=== PATIENT | male | born 1950 | race Caucasian/White ===

== ENCOUNTER 2016-06-09 15:52 | Emergency (ER) | payer MEDICARE ==
--- NOTE | 2016-06-09 15:58 | NUR ---
PT PLACED IN ROOM 4
--- NOTE | 2016-06-09 16:04 | NUR ---
DR HADLEY IN ROOM FOR EXAM
--- NOTE | 2016-06-09 16:07 | NUR ---
Pt BIBA from [place], fell while using walker. (-)KO. r wrist pain, rib pain, and hip pain. No obvious deformity noted. Pt pale in color, states normal for him. warm to touch. Resp even and unlabored, on RA@99%.
[2016-06-09 16:36] LABS: CALCIUM 8.8 mg/dL (8.4-11.0); CHLORIDE 106 mmol/L (98-107); CREATININE 1.02 mg/dL (0.55-1.30); GLUCOSE 98 mg/dL (70-99); POTASSIUM 3.9 mmol/L (3.5-5.1); SODIUM SERUM 140 mmol/L (136-145); UREA NITROGEN, BLOOD 27 mg/dL (8-21)
--- NOTE | 2016-06-09 16:37 | NUR ---
Pt reports pain, Dr Childs informed, awaiitng orders.
[2016-06-09 16:39] LABS: ANION GAP < 3 (5-15); GFR AFRICAN AMERICAN 95 mL/min (>90)
[2016-06-09 16:40] LABS: PROTHROMBIN TIME 10.7 SECS (9.5-12.5)
[2016-06-09 16:51] LABS: BASOPHILS # (AUTO) 0.1 K/uL (0.0-0.2); BASOPHILS % (AUTO) 0.8 % (0.0-2.0); EOSINOPHILS # (AUTO) 0.1 K/uL (0.0-0.4); EOSINOPHILS % (AUTO) 1.5 % (0.0-4.0); HEMATOCRIT 32.6 % (36-54); HEMOGLOBIN 11.1 g/dL (14.0-18.0); LYMPHOCYTES # (AUTO) 1.3 K/uL (1.0-5.5); LYMPHOCYTES % (AUTO) 19.4 % (20.5-51.5); MEAN CORPUSCULAR HEMOGLOBIN 31 pg (27-31); MEAN CORPUSCULAR HGB CONC 34 % (32-36); MEAN CORPUSCULAR VOLUME 91 fL (79.0-98.0); MONOCYTES # (AUTO) 0.5 K/uL (0.0-1.0); MONOCYTES % (AUTO) 8.5 % (1.7-9.3); NEUTROPHILS # (AUTO) 4.4 K/uL (1.8-7.7); NEUTROPHILS % (AUTO) 69.8 % (40.0-70.0); PLATELET COUNT (AUTO) 228 K/uL (130-430); RED BLOOD CELL COUNT(AUTO) 3.59 MIL/uL (4.2-6.2); RED CELL DISTRIBUTION WIDTH 13.2 % (9.0-15.0); WHITE BLOOD COUNT (AUTO) 6.4 K/uL (4.8-10.8)
--- NOTE | 2016-06-09 16:51 | NUR ---
Medicated as ordered, Xray called to case picker pt. VSS.
[2016-06-09 16:52] LABS: ALANINE AMINOTRANSFERASE 25 U/L (12-78); ALBUMIN 3.4 g/dL (3.4-4.8); ASPARTATE AMINOTRANSFERASE 16 U/L (10-37); TOTAL BILIRUBIN 0.4 mg/dL (0.0-1.0); TOTAL PROTEIN, SERUM 6.5 g/dL (6.4-8.3)
[2016-06-09] MEDS ORDERED: MORPHINE 2 MG/ML INJ. SYRINGE IVP ONE (17:00)
[2016-06-09] MEDS ORDERED: ONDANSETRON HCL 4 MG/2 ML VIAL IVP ONE (17:00)
--- NOTE | 2016-06-09 17:29 | NUR ---
Urinal provided, able to move around in bed-slowly. Able to verbalize needs
--- NOTE | 2016-06-09 19:30 | NUR ---
Pt in bed, appeared sleepy, VSS, unable to perform road test
[2016-06-09] MEDS ORDERED: IBUPROFEN 800 MG TABLET PO ONE (20:15)
--- NOTE | 2016-06-09 21:10 | NUR ---
Patient to be transferred to [facility]. Is being transferred due to higher level of care. Receiving facility has accepting physician and available space. ER physician has signed transfer form. Patient or responsible alliance party has agreed to transfer and signed form. Patient belongings inventoried and will be sent with patient. Copy of nursing notes, lab reports, EKG, Physicians Orders and X-rays to be sent with patient. Report called to Cabrera VELAZQUEZ at receiving facility. Receiving physician is . ambulance service has been called for transfer. ETA is [id number]
--- NOTE | 2016-06-09 21:40 | NUR ---
[place] transport team arrived at [facility], report given. Pt in stable condition, VSS
[2016-06-09 21:41] LABS: BILIRUBIN,URINE NEGATIVE (NEGATIVE); BLOOD, URINE NEGATIVE (NEGATIVE); CLARITY/URINE CLEAR (CLEAR); COLOR,URINE YELLOW (YELLOW); GLUCOSE,URINE NEGATIVE (NEGATIVE); KETONES,URINE NEGATIVE (NEGATIVE); LEUKOCYTE ESTERASE ,URINE NEGATIVE (NEGATIVE); NITRITE, URINE NEGATIVE (NEGATIVE); PROTEIN URINE NEGATIVE (NEGATIVE); UROBILINOGEN,URINE 0.2 (0.2-1.0)
[2016-06-09 23:40] VITALS: BP 128/74; PULSE 80; RESP 16; TEMP 97.7; O2SAT 96
== END 2016-06-09 23:40 | disposition home or self-care (01) ==
LOC: SED 15:52
DX: Z74.2 Need for assistance at home and no other household member able to render care (principal); R10.811 Right upper quadrant abdominal tenderness; M25.551 Pain in right hip; M25.531 Pain in right wrist; F03.90 Unspecified dementia, unspecified severity, without behavioral disturbance, psychotic disturbance, mood disturbance, and anxiety; K21.9 Gastro-esophageal reflux disease without esophagitis; I10 Essential (primary) hypertension; Z88.6 Allergy status to analgesic agent; Z88.8 Allergy status to other drugs, medicaments and biological substances; W18.30XA Fall on same level, unspecified, initial encounter; Y93.01 Activity, walking, marching and hiking; Y99.8 Other external cause status; Y92.89 Other specified places as the place of occurrence of the external cause
CPT/HCPCS: 36415; 71250; 74176; 80053; 81003; 83605; 84484; 85025; 85610; 85730; 87040; 96374; 96375; 99285; J2270; J2405; 93005

== ENCOUNTER 2016-11-15 11:46 | Emergency (ER) | payer MEDICARE ==
[~2016-11-15] VITALS: Ht 165.1 cm; Wt 54.4 kg
[2016-11-15 11:53] VITALS: BP_SYST 145
[2016-11-15 12:39] LABS: BASOPHILS % (AUTO) 0.3 % (0.0-2.0); EOSINOPHILS % (AUTO) 0.3 % (0.0-4.0); HEMATOCRIT 35.7 % (36-54); HEMOGLOBIN 11.4 g/dL (14.0-18.0); LYMPHOCYTES # (AUTO) 0.8 K/uL (1.0-5.5); LYMPHOCYTES % (AUTO) 14.7 % (20.5-51.5); MEAN CORPUSCULAR HEMOGLOBIN 29 pg (27-31); MEAN CORPUSCULAR HGB CONC 32 % (32-36); MEAN CORPUSCULAR VOLUME 91 fL (79.0-98.0); MONOCYTES # (AUTO) 0.5 K/uL (0.0-1.0); NEUTROPHILS # (AUTO) 4.1 K/uL (1.8-7.7); NEUTROPHILS % (AUTO) 75.7 % (40.0-70.0); PLATELET COUNT (AUTO) 230 K/uL (130-430); RED BLOOD CELL COUNT(AUTO) 3.94 MIL/uL (4.2-6.2); RED CELL DISTRIBUTION WIDTH 13.9 % (9.0-15.0); WHITE BLOOD COUNT (AUTO) 5.4 K/uL (4.8-10.8)
[2016-11-15 12:52] LABS: CALCIUM 9.5 mg/dL (8.4-11.0); CREATININE 0.94 mg/dL (0.55-1.30); POTASSIUM 3.9 mmol/L (3.5-5.1)
[2016-11-15 12:57] LABS: ALBUMIN 3.8 g/dL (3.4-4.8); TOTAL BILIRUBIN 0.7 mg/dL (0.0-1.0)
[2016-11-15 13:31] LABS: BILIRUBIN,URINE NEGATIVE (NEGATIVE); BLOOD, URINE NEGATIVE (NEGATIVE); CLARITY/URINE CLEAR (CLEAR); COLOR,URINE YELLOW (YELLOW); GLUCOSE,URINE NEGATIVE (NEGATIVE); KETONES,URINE NEGATIVE (NEGATIVE); LEUKOCYTE ESTERASE ,URINE TRACE (NEGATIVE); NITRITE, URINE NEGATIVE (NEGATIVE); PH,URINE 6.5 (5.0-8.0); PROTEIN URINE NEGATIVE (NEGATIVE)
[2016-11-15 13:41] LABS: BACTERIA,URINE FEW /HPF (None Seen); RBC,URINE 0-3 /HPF (0-3); WBC,URINE 0-3 /HPF (0-3)
[2016-11-15 13:42] LABS: BARBITURATE, URINE NEGATIVE (NEG <=200); BENZODIAZEPINE, URINE NEGATIVE (NEG <=150); CANNABINOID, URINE NEGATIVE (NEG <=50); COCAINE, URINE NEGATIVE (NEG <=150); METHAMPHETAMINES SCREEN,URINE NEGATIVE (NEG <=500); OPIATE, URINE POSITIVE (NEG <=100); PHENCYCLIDINE SCREEN,URINE NEGATIVE (NEG <=25); UR TRICYCLIC ANTIDEPRESSANTS NEGATIVE (NEG <=300); URINE AMPHETAMINE NEGATIVE (NEG <=500); URINE METHADONE NEGATIVE (NEG <=200); URINE OXYCODONE SCREEN NEGATIVE (NEG <=100); URINE PROPOXYPHENE SCREEN NEGATIVE (NEG <=300)
[2016-11-15 15:22] VITALS: BP_SYST 119
== END 2016-11-15 13:40 | disposition short-term general hospital (02) ==
LOC: SED 11:46
DX: R41.82 Altered mental status, unspecified (principal); G35 Multiple sclerosis; G89.29 Other chronic pain; M25.561 Pain in right knee
CPT/HCPCS: 36415; 70450-TC; 80053; 80307; 81000-TC; 85025; 93005; 99285

== ENCOUNTER 2018-08-26 15:34 | Emergency (ER) | payer MEDICARE ==
[~2018-08-26] VITALS: Ht 167.6 cm; Wt 47.6 kg
[~2018-08-26 15:34] MED LIST: ALBMDI INH; ALBU8.5H8 INH; ALEN70TA3 PO; ASCO500T20 PO; ASPI-1155 PO; CALC200T47 PO; CLOP75TA2 PO; COG1 PO; CYCL-10 PO; DOCU-144 PO; DONE10TA44 PO; FLUT16SP16 NS; GABA-529 PO; GUAI5SYR4 PO; HYDR-1189 PO; IPRA0.2S6 INH; IRON1CAP17 PO; LACT10SO6 PO; LIDO700A25 TP; LIP40 PO; MELO15TA13 PO; MOME13HF INH; MONT10TA25 PO; MORP15TA60 PO; OMEG1CAP24 PO; OMEP20CA10 PO; POLY17PO4 PO; PRO20 PO; RISP1TAB27 PO; SENN-67 PO; TERA5CAP4 PO; TRIF5TAB PO; VITD2000 PO
[2018-08-26 15:36] VITALS: BP_SYST 113
--- NOTE | 2018-08-26 15:36 | NUR ---
Patient to [facility] for evaluation. Side rails up. Report given to CAROLINE Cheatham.
[2018-08-26] MEDS ORDERED: NACL 0.9% 1,000 ML IV ONE (15:38)
[2018-08-26] MEDS ORDERED: ONDANSETRON HCL 4 MG/2 ML VIAL IVP ONE (15:45)
--- NOTE | 2018-08-26 16:30 | NUR ---
ER at bedside examining patient.
--- NOTE | 2018-08-26 16:32 | NUR ---
Patient arrived via BLS ambulance from [facility]. Patient c/c of nausea and vomiting x 3 days. Patient states worsening today. Patient denies abdominal pain. Pain r/t headache at 06/03. Patient also notes chronic back pain. Patient denies chest pain at this time. Patient has pronounced curvature to back. Patient states unable to tolerate food or fluids for 3 days, states "feeling dehydrated." Will continue to follow up and monitor.
--- NOTE | 2018-08-26 17:10 | NUR ---
Patient repostioned for comfort, given pillow. Patient given blanket as requested. Will continue to follow up and monitor.
[2018-08-26 17:13] LABS: BASOPHILS % (AUTO) 0.5 % (0.0-2.0); EOSINOPHILS % (AUTO) 0.6 % (0.0-4.0); HEMATOCRIT 37.4 % (36-54); HEMOGLOBIN 12.5 g/dL (14.0-18.0); LYMPHOCYTES # (AUTO) 1.1 K/uL (1.0-5.5); LYMPHOCYTES % (AUTO) 18.8 % (20.5-51.5); MEAN CORPUSCULAR HEMOGLOBIN 31 pg (27-31); MEAN CORPUSCULAR HGB CONC 34 % (32-36); MEAN CORPUSCULAR VOLUME 93 fL (79.0-98.0); MONOCYTES # (AUTO) 0.6 K/uL (0.0-1.0); MONOCYTES % (AUTO) 10.8 % (1.7-9.3); NEUTROPHILS % (AUTO) 69.3 % (40.0-70.0); PLATELET COUNT (AUTO) 217 K/uL (130-430); RED BLOOD CELL COUNT(AUTO) 4.02 MIL/uL (4.2-6.2); RED CELL DISTRIBUTION WIDTH 14.3 % (9.0-15.0); WHITE BLOOD COUNT (AUTO) 5.7 K/uL (4.8-10.8)
[2018-08-26 17:18] LABS: CALCIUM 9.6 mg/dL (8.4-11.0); CREATININE 0.89 mg/dL (0.55-1.30)
[2018-08-26 17:21] LABS: PROTHROMBIN TIME 10.5 SECS (9.5-12.5)
[2018-08-26 17:22] LABS: POTASSIUM 2.8 mmol/L (3.5-5.1)
[2018-08-26 17:25] LABS: ALBUMIN 3.5 g/dL (3.4-4.8); TOTAL BILIRUBIN 0.8 mg/dL (0.0-1.0)
[2018-08-26] MEDS ORDERED: KCL 20 mEq in 100 mL (PREMIX) 100 ML IV ONE (17:30)
[2018-08-26] MEDS ORDERED: NACL 0.9% 2,000 ML IV ONE (18:15)
[2018-08-26] MEDS ORDERED: MORPHINE 4 MG/ML INJ. SYRINGE IVP ONE (18:30)
--- NOTE | 2018-08-26 18:40 | NUR ---
Assisted patient at bedside for urine sample collection. Patient able to move about in bed. Patient vital signs are stable.
[2018-08-26 18:47] LABS: BILIRUBIN,URINE NEGATIVE (NEGATIVE); BLOOD, URINE NEGATIVE (NEGATIVE); CLARITY/URINE CLEAR (CLEAR); COLOR,URINE YELLOW (YELLOW); GLUCOSE,URINE NEGATIVE (NEGATIVE); KETONES,URINE TRACE (NEGATIVE); LEUKOCYTE ESTERASE ,URINE TRACE (NEGATIVE); NITRITE, URINE NEGATIVE (NEGATIVE); PROTEIN URINE NEGATIVE (NEGATIVE); UROBILINOGEN,URINE 0.2 (0.2-1.0)
[2018-08-26 18:55] LABS: BACTERIA,URINE FEW /HPF (None Seen); RBC,URINE NONE SEEN /HPF (0-3)
[2018-08-26 18:56] LABS: MUCUS,URINE None Seen /LPF (None Seen)
--- NOTE | 2018-08-26 19:05 | NUR ---
Pt taken to Radiology in stable condition
--- NOTE | 2018-08-26 19:15 | NUR ---
Patient report given to CAROLINE Dacosta, patient returned to room in stable condition.
--- NOTE | 2018-08-26 20:30 | NUR ---
VSS no s/s of acute distress. Resting gurney with rails up. Pt refused MD suggested rand cath therapy. Pt prefers sitting on BSC or urinal
--- NOTE | 2018-08-26 21:30 | NUR ---
Pt updated by Dr. Jain regarding transfer to [facility]
[2018-08-26 22:00] VITALS: BP_SYST 152
--- NOTE | 2018-08-26 22:00 | NUR ---
Patient to be transferred to [facility]. Is being transferred due to higher level of care. Receiving facility has accepting physician and available space. ER physician has signed transfer form. Patient or responsible green party has agreed to transfer and signed form. Patient belongings inventoried and will be sent with patient. Copy of nursing notes, lab reports, EKG, Physicians Orders and X-rays to be sent with patient. Report called to Prateek Gordon RN at receiving facility. Receiving physician is Dr. Canseco. [facility] ambulance service has been called for transfer.
== END 2018-08-26 22:00 | disposition short-term general hospital (02) ==
LOC: SED 15:34
DX: E87.6 Hypokalemia (principal); E87.1 Hypo-osmolality and hyponatremia; M41.80 Other forms of scoliosis, site unspecified; Z88.6 Allergy status to analgesic agent; Z88.8 Allergy status to other drugs, medicaments and biological substances; Z79.82 Long term (current) use of aspirin; Z79.899 Other long term (current) drug therapy
CPT/HCPCS: 36415; 71045; 83605; 74176; 80053; 81000; 82150; 82550; 83690; 84484; 85025; 85610; 85730; 87040; 93005; 96361; 96365; 96366; 96375; 99285; J2270; J2405; J3480; J7030